=== PATIENT | female | born 1995 | race Caucasian/White ===

== ENCOUNTER 2017-04-26 09:46 | Observation (INO) | payer OTHER, MEDICAID ==
[2017-04-26] MEDS ORDERED: Terbutaline 1 MG/ML SDV SUBCUT PRN (09:55)
[2017-04-26] MEDS ORDERED: Sodium Chloride 0.9% 10 ML Syringe FLUSH PRN (09:55)
[2017-04-26] MEDS ORDERED: Sodium Chloride 0.9% 2.5 ML Syringe FLUSH PRN (09:55)
[2017-04-26] MEDS ORDERED: Misoprostol 200 MCG Tab PO PRN (09:55)
[2017-04-26] MEDS ORDERED: Butorphanol 1 MG/ML SDV IVPUSH PRN (09:55)
[2017-04-26] MEDS ORDERED: Nalbuphine 10 MG/1 ML Vial IVPUSH PRN (09:55)
[2017-04-26] MEDS ORDERED: Lidocaine 1% 50 ML MDV INJECT PRN (09:55)
[2017-04-26] MEDS ORDERED: Carboprost Tromethamine 250 MCG/1 ML Amp IM PRN (09:55)
[2017-04-26] MEDS ORDERED: Water For Irrigation,Sterile 1,000 ML Container IRR PRN (09:55)
[2017-04-26] MEDS ORDERED: Methylergonovine 0.2 MG/1 ML Amp IM PRN (09:55)
[2017-04-26] MEDS ORDERED: Misoprostol 25 MCG (1/4 of 100 MCG) Tab PO SCH (10:00)
[2017-04-26] MEDS ORDERED: Misoprostol 25 MCG (1/4 of 100 MCG) Tab VAG SCH (10:00)
[2017-04-26] MEDS ORDERED: Lactated Ringers 1,000 ML IV SCH (10:00)
[2017-04-26] MEDS ORDERED: Oxytocin/0.9 % Sodium Chloride 30 UNIT/500 ML BAG IV SCH (10:00)
[2017-04-26 10:57] LABS: CHLORIDE,CL 107 mmol/L (98-110); SODIUM,NA 138 mmol/L (136-146)
[2017-04-26] MEDS ORDERED: Misoprostol 25 MCG (1/4 of 100 MCG) Tab PO PRN (15:00)
[2017-04-26] MEDS ORDERED: Misoprostol 25 MCG (1/4 of 100 MCG) Tab VAG PRN (15:00)
== END 2017-04-26 12:15 | disposition home or self-care (01) ==
LOC: MW.OBCHECK 09:46 → MW.OB 09:59
PROVIDERS: ADMIT Obstetrics & Gynecology; ATTEND Advanced Practice Midwife
DX: O13.3 Gestational [pregnancy-induced] hypertension without significant proteinuria, third trimester (principal); Z3A.37 37 weeks gestation of pregnancy
CPT/HCPCS: 36415; 59025; 80053; 82570; 84156; 84550; 85027; 86850; 86900; 86901; G0378

== ENCOUNTER 2017-04-29 22:07 | Inpatient (IN) | payer OTHER, MEDICAID ==
[2017-04-29 23:41] LABS: CHLORIDE,CL 106 mmol/L (98-110); SODIUM,NA 137 mmol/L (136-146)
[2017-04-30] MEDS: Cephalexin 500 MG Cap PO SCH ×4 (00:07→19:36)
[2017-04-30] MEDS ORDERED: FLU Vacc QS 2017-18 (6mos UP)/PF 60 MCG/0.5 ML Syringe IM ONE (04:30)
[2017-04-30] MEDS ORDERED: Carboprost Tromethamine 250 MCG/1 ML Amp IM PRN (07:13)
[2017-04-30] MEDS ORDERED: Methylergonovine 0.2 MG/1 ML Amp IM PRN (07:13)
[2017-04-30] MEDS ORDERED: Lidocaine 1% 50 ML MDV INJECT PRN (07:13)
[2017-04-30] MEDS ORDERED: Sodium Chloride 0.9% 2.5 ML Syringe FLUSH PRN ×2 (07:13→07:24)
[2017-04-30] MEDS ORDERED: Nalbuphine 10 MG/1 ML Vial IVPUSH PRN (07:13)
[2017-04-30] MEDS ORDERED: Misoprostol 200 MCG Tab PO PRN (07:13)
[2017-04-30] MEDS ORDERED: Sodium Chloride 0.9% 10 ML Syringe FLUSH PRN ×2 (07:13→07:24)
[2017-04-30] MEDS ORDERED: Water For Irrigation,Sterile 1,000 ML Container IRR PRN (07:13)
[2017-04-30] MEDS ORDERED: Butorphanol 1 MG/ML SDV IVPUSH PRN (07:13)
[2017-04-30] MEDS ORDERED: Oxytocin/0.9 % Sodium Chloride 30 UNIT/500 ML BAG IV SCH ×2 (07:15→07:30)
[2017-04-30] MEDS ORDERED: Misoprostol 25 MCG (1/4 of 100 MCG) Tab VAG PRN (07:22)
[2017-04-30] MEDS ORDERED: Terbutaline 1 MG/ML SDV SUBCUT PRN (07:22)
[2017-04-30] MEDS ORDERED: Magnesium Sulfate/Water 4 GM in Premix Bag 1 BAG IV ONE (07:24)
[2017-04-30] MEDS ORDERED: Calcium Gluconate 10% 1 GM/10 ML SDV IV PRN (07:24)
[2017-04-30] MEDS ORDERED: Misoprostol 25 MCG (1/4 of 100 MCG) Tab VAG SCH (07:30)
[2017-04-30 08:07] LABS: CHLORIDE,CL 106 mmol/L (98-110); SODIUM,NA 136 mmol/L (136-146)
[2017-04-30] MEDS: Lactated Ringers 1,000 ML IV SCH ×2 (09:23→20:24)
[2017-04-30] MEDS: Magnesium Sulfate/Water 40 GM/1,000 ML BAG IV SCH (10:02)
--- NOTE | 2017-04-30 13:21 | HP ---
DATE OF : 1995 PRIMARY CARE PHYSICIAN: None PCP CHIEF COMPLAINT: Hypertension. HISTORY OF PRESENT ILLNESS: This is a 21-year-old female. She is G1, P0. She is currently at 37 and 6/7th weeks' gestation. She has been seen in the [facility] at [facility] over the past 5 days with a diagnosis of hypertension. She was started on a 24-hour urine yesterday and did bring that with her to the hospital. She was checking her blood pressures at home. The diastolics were consistently in the upper 90s, therefore, she presented to Labor and Delivery. She did have a headache several days ago. This has subsequently resolved. She has had some visual changes of what she calls snow flakes in her vision. She did have increased swelling in her hands and face as well as her lower extremities. She was placed on bedrest last week and her swelling have subsequently improved. Her blood pressures in clinic, baseline was 100/70, 120/70. On 04/26/2017, blood pressure was recorded as 140/108. She was observed on Labor and Delivery with serial blood pressures which did improve following complete bedrest. Laboratory studies including platelets and liver functions were normal, however, she did bring in her 24-hour urine collection which she started at 12 noon. This was completed and sent to the laboratory at 12 midnight for a 12-hour collection with a total protein of 207, making her 24-hour protein 414 consistent with proteinuria along with her hypertension gives her the diagnosis of mild preeclampsia. I discussed with her the options for plan of care. I recommended proceeding with induction of labor, as she is at term with mild preeclampsia. She agrees to this plan. Her cervix is favorable, however, with this being her first delivery, I did recommend proceeding with cervical ripening. She agrees to the use of Cytotec. I explained that it is an off-label use, but it has been well studied and there are safe protocols for its use. She agrees to beginning with vaginal Cytotec for induction of labor. I discussed the use of magnesium for seizure prophylaxis with side effects and complication, she also agrees to the magnesium. OB HISTORY: She is G1, P0. Her LMP was 07/05/2016. LABORATORY DATA AND IMAGING STUDIES: Laboratory studies include blood type O positive; antibody, negative. Pap normal. Positive history of varicella. She is rubella immune. VDRL, nonreactive. Hepatitis B, negative. HIV, negative. She is group B strep negative. She had a normal diabetes screen of 98. She did have an ultrasound performed yesterday which had been ordered by her molded goods spot picker. Estimated weight of 3265 g. Amniotic fluid index of 12.6, cephalic presentation. PAST MEDICAL HISTORY: Negative for chronic illness. PAST SURGICAL HISTORY: Right breast augmentation. FAMILY HISTORY: Significant for brother and father with type 1 diabetes. Heart disease in paternal grandmother. No history of congenital defects or other genetic disorders. SOCIAL HISTORY: Her partner is Canelo Kearney. She is sexually active. She denies use of tobacco, alcohol, or street drugs. ALLERGIES: None known. MEDICATIONS: vitamins. REVIEW OF SYSTEMS: NEUROLOGIC: Positive as reviewed previously including history of recent headaches, now resolved. Some visual changes, mild in nature. Otherwise, Cardiovascular, Pulmonary, Rheumatologic, and Dermatologic review of systems are negative. GENITOURINARY: She does report recent cramping with urination. She attributed this to her examination in the clinic. She has noted some blood in her urine as well. PHYSICAL EXAMINATION: VITAL SIGNS: Initial blood pressures are 139/94, pulse is 82, temperature 98.0, with rest blood pressure is 136/65, 123/76, and 148/93. heart tones are 130s, moderate variability. Accelerations present. No decelerations. Contractions are rare. GENERAL: She is alert and oriented. She does have some facial and hand edema. NECK: Supple without lymphadenopathy or thyromegaly. LUNGS: Clear bilaterally. CARDIOVASCULAR: Regular rate without murmur. ABDOMEN: Soft, gravid. There is no epigastric pain. The fundus is nontender. Appropriate size for gestational age. EXTREMITIES: 1+ edema bilaterally. Deep tendon reflexes are 1/4, equal bilaterally. VAGINAL: 2+, 80%, and 0 station. ASSESSMENT AND PLAN: 1. A 37 and 6/7th weeks' gestation with mild preeclampsia for induction of labor with magnesium seizure prophylaxis. 2. Urinary tract infection. We will proceed with culture and continue with Keflex that was started prior to the plan for admission. Dr. Nunez is objects conservator today and will assume care at 8:00 a.m. AMARA CASTREJON /[id number]
[2017-04-30] MEDS ORDERED: Acetaminophen 500 MG Tab PO PRN (22:03)
[2017-05-01] MEDS: Cephalexin 500 MG Cap PO SCH ×5 (00:26→23:51)
[2017-05-01] MEDS ORDERED: Ropivacaine HCl/PF 100 ML ONE (00:35)
[2017-05-01] MEDS ORDERED: fentaNYL 100 MCG/2 ML SDV ONE (00:36)
[2017-05-01] MEDS: Lactated Ringers 1,000 ML IV SCH ×2 (00:49→06:35)
--- NOTE | 2017-05-01 01:26 | PCM.PREANE ---
Preanesthetic Assessment - Procedure Proposed Procedure: labor epidural - Anesthesia/Transfusion/Family Hx Anesthesia History: No Prior Anesthesia Family History of Anesthesia Reaction: No Transfusion History: No Prior Transfusion(s) - Review of Systems General: No Symptoms Pulmonary: No Symptoms Cardiovascular: No Symptoms Gastrointestinal: No Symptoms Neurological: No Symptoms Other: Reports: None - Physical Assessment Height: 5 ft 4.8 in Weight: 186 lb 12.8 oz Mental Status: Alert & Oriented x3 Dentition: Reports: Normal Dentition ROM/Head Extension: Full Lungs: Clear to Auscultation, Normal Respiratory Effort Cardiovascular: Regular Rate, Regular Rhythm - Lab Values: Laboratory Last Values WBC 11.41 K/uL (4.0-11.0) H 04/30/17 07:33 RBC 4.10 M/uL (4.30-5.90) L 04/30/17 07:33 Hgb 11.6 g/dL (12.0-16.0) L 04/30/17 07:33 Hct 35.1 % (36.0-46.0) L 04/30/17 07:33 MCV 85.6 fL (80.0-98.0) 04/30/17 07:33 MCH 28.3 pg (27.0-32.0) 04/30/17 07:33 MCHC 33.0 g/dL (31.0-37.0) 04/30/17 07:33 RDW Std Deviation 40.1 fl (28.0-62.0) 04/30/17 07:33 RDW Coeff of Maegan 13 % (11.0-15.0) 04/30/17 07:33 Plt Count 210 K/uL (150-400) 04/30/17 07:33 MPV 10.50 fL (7.40-12.00) 04/30/17 07:33 Nucleated RBC % 0.0 /100WBC 04/30/17 07:33 Nucleated RBCs # 0 K/uL 04/30/17 07:33 Sodium 136 mmol/L (136-146) 04/30/17 07:33 Potassium 4.2 mmol/L (3.5-5.1) 04/30/17 07:33 Chloride 106 mmol/L (98-110) 04/30/17 07:33 Carbon Dioxide 23 mmol/L (21-31) 04/30/17 07:33 BUN 10 mg/dL (6.0-23.0) 04/30/17 07:33 Creatinine 0.7 mg/dL (0.6-1.5) 04/30/17 07:33 Est Cr Clr Drug Dosing 111.56 mL/min 04/30/17 07:33 Estimated GFR (MDRD) > 60.0 ml/min 04/30/17 07:33 Glucose 68 mg/dL (60-110) 04/30/17 07:33 Uric Acid 4.7 mg/dL (2.1-6.2) 04/29/17 22:57 Calcium 8.6 mg/dL (8.8-10.8) L 04/30/17 07:33 Magnesium 4.7 mEq/L (1.5-2.3) H 04/30/17 21:05 Total Bilirubin 0.2 mg/dL (0.1-1.5) 04/30/17 07:33 AST 21 IU/L (5-40) 04/30/17 07:33 ALT 20 IU/L (8-54) 04/30/17 07:33 Alkaline Phosphatase 143 (40-150) 04/30/17 07:33 Total Protein 6.0 g/dL (6.0-8.0) 04/30/17 07:33 Albumin 3.1 g/dL (3.5-5.0) L 04/30/17 07:33 Globulin 2.9 g/dL (2.0-3.5) 04/30/17 07:33 Albumin/Globulin Ratio 1.1 (1.3-2.8) L 04/30/17 07:33 Urine Color YELLOW 04/29/17 22:15 Urine Appearance SLT CLOUDY 04/29/17 22:15 Urine pH 8.0 (5.0-8.0) 04/29/17 22:15 Ur Specific [place] 1.010 (1.001-1.035) 04/29/17 22:15 Urine Protein NEGATIVE mg/dL (NEGATIVE) 04/29/17 22:15 Urine Glucose (UA) NEGATIVE mg/dL (NEGATIVE) 04/29/17 22:15 Urine Ketones NEGATIVE mg/dL (NEGATIVE) 04/29/17 22:15 Urine Occult Blood LARGE (NEGATIVE) H 04/29/17 22:15 Urine Nitrite NEGATIVE (NEGATIVE) 04/29/17 22:15 Urine Bilirubin NEGATIVE (NEGATIVE) 04/29/17 22:15 Urine Urobilinogen 0.2 EU/dL (<2.0) 04/29/17 22:15 Ur Leukocyte Esterase LARGE (NEGATIVE) 04/29/17 22:15 Urine RBC 3-5 (0-2/HPF) 04/29/17 22:15 Urine WBC 35-40 (0-5/HPF) 04/29/17 22:15 Ur Epithelial Cells MODERATE (NONE-FEW) 04/29/17 22:15 Urine Bacteria 1+ (NEGATIVE) H 04/29/17 22:15 Ur Collection Duration 12 04/29/17 23:57 Urine Total Volume 900 (800-1800) 04/29/17 23:57 Ur Total Protein Conc 23.0 mg/dL (0-14) H 04/29/17 23:57 Ur Total Protein 12 Hr 207.0 04/29/17 23:57 Blood Type O POSITIVE 04/30/17 07:33 Antibody Screen NEGATIVE 04/30/17 07:33 - Allergies Allergies/Adverse Reactions: Allergies Allergy/AdvReac Type Severity Reaction Status Date / Time No Known Allergies Allergy Verified 04/26/17 09:54 - Anesthesia Plan Free Text/Narrative:: labor epidural Pre-Op Medication Ordered: None - Acknowledgements Anesthesia Type Planned: Epidural Pt an Appropriate Candidate for the Planned Anesthesia: Yes Alternatives and Risks of Anesthesia Discussed w Pt/Guardian: Yes Pt/Guardian Understands and Agrees with Anesthesia Plan: Yes PreAnesthesia Questionnaire SAUSAGE WRAPPER History: Reports: - Past Surgical History HEENT Surgical History: Reports: Tonsillectomy Dermatological Surgical History: Reports: Plastic Surgical Reconstruction/Repair - SUBSTANCE USE Smoking Status *Q: Never Smoker Second Hand Smoke Exposure: No Recreational Drug Use History: No - CURRENT (IN HOUSE) MEDS Current Meds: Current Medications Acetaminophen (Tylenol Extra Strength) 1,000 mg PO Q6H PRN PRN Reason: Headache/Pain Last Admin: 04/30/17 22:12 Dose: 1,000 mg Butorphanol Tartrate (Stadol) 1 mg IVPUSH Q1H PRN PRN Reason: Pain Calcium Gluconate (Calcium Gluconate) 1 gm IV ASDIRECTED PRN PRN Reason: respiratory distress Carboprost Tromethamine (Hemabate Ds) 250 mcg IM ASDIRECTED PRN PRN Reason: Post Hemorrhage Cephalexin (Keflex) 500 mg PO Q6HR KARTIK Last Admin: 05/01/17 00:26 Dose: 500 mg Lactated Ringer's (Ringers, Lactated) 1,000 mls @ 50 mls/hr IV ASDIRECTED KARTIK Last Admin: 05/01/17 00:49 Dose: 999 mls/hr Oxytocin/Sodium Chloride (Oxytocin 30 Unit/500 Ml-Ns) 30 unit in 500 mls @ 999 mls/hr IV TITRATE KARTIK Oxytocin/Sodium Chloride (Oxytocin 30 Unit/500 Ml-Ns) 30 unit in 500 mls @ 2 mls/hr IV TITRATE KARTIK; 2 MUNITS/MIN PRN Reason: Protocol Last Titration: 04/30/17 21:55 Dose: 4 munits/min, 4 mls/hr Magnesium Sulfate (Magnesium Sulfate 40 Gm In Water 1000 Ml) 40 gm in 1,000 mls @ 50 mls/hr IV ASDIRECTED KARTIK; 2 GM/HR PRN Reason: Protocol Last Admin: 04/30/17 10:02 Dose: 2 gm/hr, 50 mls/hr Lidocaine HCl (Xylocaine 1%) 50 ml INJECT .ONCE PRN PRN Reason: Laceration repair Methylergonovine Maleate (Methergine) 0.2 mg IM ASDIRECTED PRN PRN Reason: Post Hemorrhage Misoprostol (Cytotec) 200 mcg PO .ONCE PRN PRN Reason: Post Hemorrhage Misoprostol (Cytotec) 25 mcg VAG .ONCE KARTIK Last Admin: 04/30/17 10:26 Dose: 25 mcg Misoprostol (Cytotec) 25 mcg VAG Q6H PRN PRN Reason: Cervical Ripening Last Admin: 04/30/17 16:25 Dose: 25 mcg Nalbuphine HCl (Nubain) 10 mg IVPUSH Q1H PRN PRN Reason: Pain (severe 7-10) Sodium Chloride (Saline Flush) 10 ml FLUSH ASDIRECTED PRN PRN Reason: Keep Vein Open Sodium Chloride (Saline Flush) 2.5 ml FLUSH ASDIRECTED PRN PRN Reason: Keep Vein Open Sodium Chloride (Saline Flush) 10 ml FLUSH ASDIRECTED PRN PRN Reason: Keep Vein Open Sodium Chloride (Saline Flush) 2.5 ml FLUSH ASDIRECTED PRN PRN Reason: Keep Vein Open Sterile Water (Sterile Water For Irrigation) 1,000 ml IRR ASDIRECTED PRN PRN Reason: delivery Terbutaline Sulfate (Brethine) 0.25 mg SUBCUT ASDIRECTED PRN PRN Reason: Tacysystole Discontinued Medications Fentanyl (Sublimaze) Confirm Administered Dose 200 mcg .ROUTE .STK-MED ONE Stop: 05/01/17 00:37 Magnesium Sulfate 4 gm/ Premix 100 mls @ 300 mls/hr IV .BOLUS ONE Stop: 04/30/17 07:43 Last Admin: 04/30/17 09:42 Dose: 300 mls/hr Ropivacaine (Naropin 0.2%) Confirm Administered Dose 100 mls @ as directed .ROUTE .STK-MED ONE Stop: 05/01/17 00:36 Influenza Virus Vaccine (Pharmacy To Dose - Influenza Vaccine) 1 each IM ONETIME ONE Stop: 04/30/17 04:14 Influenza Virus Vaccine (Flulaval Quad [id number]) 60 mcg IM .ONCE ONE Stop: 04/30/17 04:31
[2017-05-01] MEDS ORDERED: Ondansetron 4 MG/2 ML SDV IVPUSH STA (04:46)
[2017-05-01] MEDS ORDERED: Witch Hazel Medicated Pads 40/Jar TOP PRN (04:59)
[2017-05-01] MEDS ORDERED: oxyCODONE 5 MG Tab PO PRN (04:59)
[2017-05-01] MEDS ORDERED: Docusate Sodium 100 MG Cap PO PRN (04:59)
[2017-05-01] MEDS ORDERED: Bisacodyl 10 MG Supp RECTAL PRN (04:59)
[2017-05-01] MEDS ORDERED: Ibuprofen 400 MG Tab PO PRN (04:59)
[2017-05-01] MEDS ORDERED: Benzocaine/Menthol 20%-0.5% Spray 78 GM Cannister TOP PRN (04:59)
[2017-05-01] MEDS ORDERED: Lanolin 100% Cream 7 GM Tube TOP PRN (04:59)
[2017-05-01] MEDS ORDERED: Ondansetron 4 MG/2 ML SDV IVPUSH PRN (04:59)
[2017-05-01] MEDS ORDERED: Acetaminophen 500 MG Tab PO PRN ×2 (04:59)
[2017-05-01] MEDS: Magnesium Sulfate/Water 40 GM/1,000 ML BAG IV SCH (05:49)
--- NOTE | 2017-05-01 06:07 | OR ---
SURGEON: Arlette Nunez M.D. DATE OF PROCEDURE: 05/01/2017 PREOPERATIVE DIAGNOSES: 1. Thirty-eight weeks intrauterine . 2. Preeclampsia. POSTOPERATIVE DIAGNOSIS: 1. Thirty-eight weeks intrauterine . 2. Preeclampsia. PROCEDURE: Spontaneous vaginal delivery, second-degree midline laceration repair. CHEESE SPRAYER: Osvaldo Drake MS-4. ESTIMATED BLOOD LOSS: 40 mL. ANESTHESIA: Epidural. COMPLICATIONS: None. FINDINGS: Term male with score 9 at 1 minute and 10 at 5 minutes. Weight is pending. Spontaneous delivery, intact placenta, three-vessel cord. Nuchal cord x1 noted, reduced manually. DISPOSITION: Mom in magnesium recovery, infant to nursery. PROCEDURE DETAILS: Rommel is a 21-year-old, primigravida, approximately 38 weeks gestational age, who presents for evaluation of labor and delivery with headache and swelling. On evaluation, she was found to have abnormally elevated blood pressures with an abnormally elevated to 12-hour urine for protein. Therefore, she was diagnosed with preeclampsia and was admitted. PIH labs were drawn. Given term gestation, it was felt to be best to proceed with induction of labor. Therefore, magnesium prophylaxis was initiated as well as followed by Cytotec, responded nicely to this. After two doses of Cytotec, was found to be approximately 4 cm dilated, 80% effaced, -1 station. Therefore, went on to Pitocin augmentation. She had spontaneous rupture of membranes. Clear fluid was returned. She is group B beta strep negative. heart tones remained in the 130s to 140s with variability, category 1. The patient continued to progress nicely throughout the evening and plasterer maintenance hours. Shortly before 3 a.m., she was found to be complete, 100% effaced, +2 station. Began pushing efforts, pushed adequately to a +3 station. She was placed in modified dorsal lithotomy position, was prepped and draped in the usual aseptic manner. Continued with pushing efforts and was able to deliver infant's head atraumatically, spontaneously, followed by anterior shoulder, posterior shoulder, and remainder of the body without difficulty. Nuchal cord x1, reduced manually. The 's oropharynx and nares bulb suctioned. Cord was clamped x2 and cut. Infant was handed off to her mother with attending nursing staff at her side. Cord arterial, cord venous, cord blood sampling obtained. Light suprapubic pressure was applied while the placenta was delivered spontaneously intact. Vigorous fundal uterine massage was then applied while 30 units of Pitocin was delivered in 500 mL IV fluid. Upon inspection of cervix, vaginal sidewalls, and perineum, there was found to be a second-degree midline laceration. This was repaired in the usual fashion using a 3-0 Vicryl. Hemostasis appeared evident. The patient tolerated the repair well. The uterus remained firm. The patient remained on magnesium recovery. We will monitor her blood pressures closely. Continue magnesium prophylaxis. ANGEL / CASH /[id number]
[2017-05-01] MEDS: Ibuprofen 800 MG Tab PO PRN ×2 (09:19→17:40)
[2017-05-01 15:49] LABS: CHLORIDE,CL 104 mmol/L (98-110); SODIUM,NA 134 mmol/L (136-146)
--- NOTE | 2017-05-01 18:57 | PCM.PNPP ---
- General Info Functional Status: Reports: Pain Controlled, Tolerating Diet, Urinating - Review of Systems General: Reports: Fatigue. Denies: Fever, Malaise HEENT: Denies: Headaches Pulmonary: Denies: Shortness of Breath, Pleuritic Chest Pain Cardiovascular: Denies: Chest Pain, Palpitations, Dyspnea on Exertion Gastrointestinal: Denies: Abdominal Pain Genitourinary: Denies: Dysuria, Frequency Neurological: Denies: Confusion, Dizziness, Headache, Paresthesia - General Info Date of Service: 05/01/17 - Patient Data Vital Signs - Most Recent: Last Vital Signs Temp 36.9 C 05/01/17 15:00 Pulse 89 05/01/17 15:00 Resp 16 05/01/17 15:00 BP 129/75 05/01/17 15:00 Pulse Ox 97 05/01/17 15:00 Weight - Most Recent: 186 lb 12.8 oz I&O - Last 24 Hours: Intake & Output 05/01/17 05/01/17 05/01/17 06:59 14:59 22:59 Intake Total 90 Output Total 1000 Balance -1000 90 Lab Results - Last 24 Hours: Laboratory Results - last 24 hr 04/30/17 05/01/17 05/01/17 Range/Units 21:05 02:54 08:55 WBC (4.0-11.0) K/uL RBC (4.30-5.90) M/uL Hgb (12.0-16.0) g/dL Hct (36.0-46.0) % MCV (80.0-98.0) fL MCH (27.0-32.0) pg MCHC (31.0-37.0) g/dL RDW Std Deviation (28.0-62.0) fl RDW Coeff of Maegan (11.0-15.0) % Plt Count (150-400) K/uL MPV (7.40-12.00) fL Neut % (Auto) (48.0-80.0) % Lymph % (Auto) (16.0-40.0) % Walton % (Auto) (0.0-15.0) % Eos % (Auto) (0.0-7.0) % Baso % (Auto) (0.0-1.5) % Neut # (Auto) (1.4-5.7) K/uL Lymph # (Auto) (0.6-2.4) K/uL Walton # (Auto) (0.0-0.8) K/uL Eos # (Auto) (0.0-0.7) K/uL Baso # (Auto) (0.0-0.1) K/uL Nucleated RBC % /100WBC Nucleated RBCs # K/uL Sodium (136-146) mmol/L Potassium (3.5-5.1) mmol/L Chloride (98-110) mmol/L Carbon Dioxide (21-31) mmol/L BUN (6.0-23.0) mg/dL Creatinine (0.6-1.5) mg/dL Est Cr Clr Drug Dosing mL/min Estimated GFR (MDRD) ml/min Glucose (60-110) mg/dL Calcium (8.8-10.8) mg/dL Magnesium 4.7 H 5.0 H 4.4 H (1.5-2.3) mEq/L Total Bilirubin (0.1-1.5) mg/dL AST (5-40) IU/L ALT (8-54) IU/L Alkaline Phosphatase (40-150) Total Protein (6.0-8.0) g/dL Albumin (3.5-5.0) g/dL Globulin (2.0-3.5) g/dL Albumin/Globulin Ratio (1.3-2.8) 05/01/17 05/01/17 Range/Units 15:10 15:10 WBC 12.98 H (4.0-11.0) K/uL RBC 3.55 L (4.30-5.90) M/uL Hgb 10.2 L (12.0-16.0) g/dL Hct 30.6 L (36.0-46.0) % MCV 86.2 (80.0-98.0) fL MCH 28.7 (27.0-32.0) pg MCHC 33.3 (31.0-37.0) g/dL RDW Std Deviation 42.5 (28.0-62.0) fl RDW Coeff of Maegan 14 (11.0-15.0) % Plt Count 194 (150-400) K/uL MPV 10.50 (7.40-12.00) fL Neut % (Auto) 75.5 (48.0-80.0) % Lymph % (Auto) 17.3 (16.0-40.0) % Walton % (Auto) 6.1 (0.0-15.0) % Eos % (Auto) 0.8 (0.0-7.0) % Baso % (Auto) 0.3 (0.0-1.5) % Neut # (Auto) 9.8 H (1.4-5.7) K/uL Lymph # (Auto) 2.2 (0.6-2.4) K/uL Walton # (Auto) 0.8 (0.0-0.8) K/uL Eos # (Auto) 0.1 (0.0-0.7) K/uL Baso # (Auto) 0.0 (0.0-0.1) K/uL Nucleated RBC % 0.0 /100WBC Nucleated RBCs # 0 K/uL Sodium 134 L (136-146) mmol/L Potassium 4.5 (3.5-5.1) mmol/L Chloride 104 (98-110) mmol/L Carbon Dioxide 23 (21-31) mmol/L BUN 11 (6.0-23.0) mg/dL Creatinine 0.8 (0.6-1.5) mg/dL Est Cr Clr Drug Dosing 97.62 mL/min Estimated GFR (MDRD) > 60.0 ml/min Glucose 121 H (60-110) mg/dL Calcium 6.9 L (8.8-10.8) mg/dL Magnesium > 4.6 H (1.5-2.3) mEq/L Total Bilirubin 0.2 (0.1-1.5) mg/dL AST 26 (5-40) IU/L ALT 16 (8-54) IU/L Alkaline Phosphatase 130 (40-150) Total Protein 5.5 L (6.0-8.0) g/dL Albumin 2.7 L (3.5-5.0) g/dL Globulin 2.8 (2.0-3.5) g/dL Albumin/Globulin Ratio 1.0 L (1.3-2.8) Micro Results - Last 24 Hours: Microbiology 04/29/17 22:15 Urine Culture - Final Urine, Clean Catch MIXED KERON 10,000-100,000 CFU/ML Med Orders - Current: Current Medications Acetaminophen (Tylenol Extra Strength) 1,000 mg PO Q6H PRN PRN Reason: Headache/Pain Last Admin: 04/30/17 22:12 Dose: 1,000 mg Acetaminophen (Tylenol Extra Strength) 500 mg PO Q4H PRN PRN Reason: Pain Acetaminophen (Tylenol Extra Strength) 1,000 mg PO Q4H PRN PRN Reason: Pain Benzocaine/Menthol (Dermoplast Pain Relief 20%-0.5% [place]) 78 gm TOP ASDIRECTED PRN PRN Reason: Perineal Comfort Measure Last Admin: 05/01/17 05:41 Dose: 1 canister Bisacodyl (Dulcolax) 10 mg RECTAL .ONCE PRN PRN Reason: Constipation Calcium Gluconate (Calcium Gluconate) 1 gm IV ASDIRECTED PRN PRN Reason: respiratory distress Carboprost Tromethamine (Hemabate Ds) 250 mcg IM ASDIRECTED PRN PRN Reason: Post Hemorrhage Cephalexin (Keflex) 500 mg PO Q6HR KARTIK Last Admin: 05/01/17 18:07 Dose: 500 mg Docusate Sodium (Colace) 100 mg PO BID PRN PRN Reason: Constipation Emollient Ointment (Lansinoh Hpa) 0 gm TOP ASDIRECTED PRN PRN Reason: Sore Nipples Last Admin: 05/01/17 05:42 Dose: 1 applicful Lactated Ringer's (Ringers, Lactated) 1,000 mls @ 50 mls/hr IV ASDIRECTED KARTIK Last Admin: 05/01/17 06:35 Dose: 999 mls/hr Oxytocin/Sodium Chloride (Oxytocin 30 Unit/500 Ml-Ns) 30 unit in 500 mls @ 999 mls/hr IV TITRATE KARTIK Oxytocin/Sodium Chloride (Oxytocin 30 Unit/500 Ml-Ns) 30 unit in 500 mls @ 2 mls/hr IV TITRATE KARTIK; 2 MUNITS/MIN PRN Reason: Protocol Last Titration: 05/01/17 04:17 Dose: 999 munits/min, 999 mls/hr Magnesium Sulfate (Magnesium Sulfate 40 Gm In Water 1000 Ml) 40 gm in 1,000 mls @ 50 mls/hr IV ASDIRECTED KARTIK; 2 GM/HR PRN Reason: Protocol Last Admin: 05/01/17 05:49 Dose: 2 gm/hr, 50 mls/hr Ibuprofen (Motrin) 400 mg PO Q4H PRN PRN Reason: Pain Ibuprofen (Motrin) 800 mg PO Q6H PRN PRN Reason: Pain Last Admin: 05/01/17 17:40 Dose: 800 mg Methylergonovine Maleate (Methergine) 0.2 mg IM ASDIRECTED PRN PRN Reason: Post Hemorrhage Nalbuphine HCl (Nubain) 10 mg IVPUSH Q1H PRN PRN Reason: Pain (severe 7-10) Ondansetron HCl (Zofran) 4 mg IVPUSH Q6H PRN PRN Reason: Nausea/Vomiting Oxycodone HCl (Oxycodone) 5 mg PO Q2H PRN PRN Reason: Pain Sodium Chloride (Saline Flush) 2.5 ml FLUSH ASDIRECTED PRN PRN Reason: Keep Vein Open Sodium Chloride (Saline Flush) 10 ml FLUSH ASDIRECTED PRN PRN Reason: Keep Vein Open Witch Valeria (Tucks) 1 pad TOP ASDIRECTED PRN PRN Reason: comfort care Last Admin: 05/01/17 05:42 Dose: 1 applic Discontinued Medications Butorphanol Tartrate (Stadol) 1 mg IVPUSH Q1H PRN PRN Reason: Pain Fentanyl (Sublimaze) Confirm Administered Dose 200 mcg .ROUTE .STK-MED ONE Stop: 05/01/17 00:37 Magnesium Sulfate 4 gm/ Premix 100 mls @ 300 mls/hr IV .BOLUS ONE Stop: 04/30/17 07:43 Last Admin: 04/30/17 09:42 Dose: 300 mls/hr Ropivacaine (Naropin 0.2%) Confirm Administered Dose 100 mls @ as directed .ROUTE .STK-MED ONE Stop: 05/01/17 00:36 Influenza Virus Vaccine (Pharmacy To Dose - Influenza Vaccine) 1 each IM ONETIME ONE Stop: 04/30/17 04:14 Influenza Virus Vaccine (Flulaval Quad [id number]) 60 mcg IM .ONCE ONE Stop: 04/30/17 04:31 Lidocaine HCl (Xylocaine 1%) 50 ml INJECT .ONCE PRN PRN Reason: Laceration repair Misoprostol (Cytotec) 200 mcg PO .ONCE PRN PRN Reason: Post Hemorrhage Misoprostol (Cytotec) 25 mcg VAG .ONCE KARTIK Last Admin: 04/30/17 10:26 Dose: 25 mcg Misoprostol (Cytotec) 25 mcg VAG Q6H PRN PRN Reason: Cervical Ripening Last Admin: 04/30/17 16:25 Dose: 25 mcg Ondansetron HCl (Zofran) 4 mg IVPUSH ONETIME STA Stop: 05/01/17 04:47 Last Admin: 05/01/17 05:00 Dose: 4 mg Sodium Chloride (Saline Flush) 10 ml FLUSH ASDIRECTED PRN PRN Reason: Keep Vein Open Sodium Chloride (Saline Flush) 2.5 ml FLUSH ASDIRECTED PRN PRN Reason: Keep Vein Open Sterile Water (Sterile Water For Irrigation) 1,000 ml IRR ASDIRECTED PRN PRN Reason: delivery Terbutaline Sulfate (Brethine) 0.25 mg SUBCUT ASDIRECTED PRN PRN Reason: Tacysystole - Infant Interaction Infant Disposition, : in Room with Family Feeding: Breastfed Infant; Nursed Well Support Person: Significant Other - Recovery Exam Fundal Tone: Firm Fundal Level: 1 Fingerbreadths Below Umbilicus Fundal Placement: Midline Lochia Amount: Scant Lochia Color: Rubra/Red Perineum Description: Edematous Episiotomy/Laceration: Approximated Bladder Status: Voiding Urinary Elimination: Voided - Exam General: Alert, Oriented HEENT: Pupils Equal Lungs: Clear to Auscultation, Normal Respiratory Effort Cardiovascular: Regular Rate, Regular Rhythm GI/Abdominal Exam: Soft Extremities: Non-Tender, Pedal Edema Neurological: No New Focal Deficit, Reflexes Equal Bilateral (2+. No clonus) Psy/Mental Status: Alert, Normal Affect, Normal Mood - Problem List & Annotations (1) Pre-eclampsia, delivered SNOMED Code(s): 125915798 Code(s): O14.94 - UNSPECIFIED PRE-ECLAMPSIA, COMPLICATING CHILDBIRTH Status : Acute Current Visit: Yes (2) Vaginal delivery SNOMED Code(s): 593996121 Code(s): O80 - ENCOUNTER FOR FULL-TERM UNCOMPLICATED DELIVERY Status: Acute Current Visit: Yes - Problem List Review Problem List Initiated/Reviewed/Updated: Yes - Assessment Assessment:: PPD #0, s/p at 37weeks, IOL for mild preecalmpsia, currently on Magnesium sulphate Asymptomatic. Normotensive with normal HELLP labs Adequate Urine output - Plan Plan:: May stop Magnesium sulphate. Continue current management. Will continue close observation overnight and anticipate discharge in tomorrow if remains clinically stable
[2017-05-02] MEDS: Cephalexin 500 MG Cap PO SCH ×4 (00:06→19:23)
[2017-05-02] MEDS: Ibuprofen 800 MG Tab PO PRN ×2 (02:45→20:26)
--- NOTE | 2017-05-02 07:51 | PCM48HPAN ---
Post Anesthesia Note - EVALUATION WITHIN 48HRS OF ANESTHETIC Vital Signs in Normal Range: Yes Patient Participated in Evaluation: Yes Respiratory Function Stable: Yes Airway Patent: Yes Cardiovascular Function Stable: Yes Hydration Status Stable: Yes Pain Control Satisfactory: Yes Nausea and Vomiting Control Satisfactory: Yes Mental Status Recovered: Yes
--- NOTE | 2017-05-02 08:12 | PCM.PNPP ---
<Osvaldo Drake - Last Filed: 05/02/17 08:36> - General Info Date of Service: 05/02/17 Functional Status: Reports: Pain Controlled, Tolerating Diet, Ambulating, Urinating - Review of Systems General: Denies: Fever, Weakness, Fatigue HEENT: Denies: Headaches, Visual Changes Pulmonary: Denies: Shortness of Breath, Pleuritic Chest Pain, Cough Cardiovascular: Denies: Chest Pain, Palpitations Gastrointestinal: Reports: Flatus. Denies: Diarrhea, Nausea, Vomiting Genitourinary: Denies: Dysuria, Frequency Musculoskeletal: Reports: Hand Pain (carpal tunnel) Skin: Denies: Cyanosis, Jaundice, Mottled Neurological: Denies: Confusion, Dizziness, Headache Psychiatric: Denies: Confusion, Depression - General Info Date of Service: 05/02/17 - Patient Data Vital Signs - Most Recent: Last Vital Signs Temp 98.0 F 05/01/17 21:00 Pulse 78 05/01/17 21:00 Resp 16 05/01/17 21:00 BP 130/76 05/01/17 21:00 Pulse Ox 96 05/01/17 21:00 Weight - Most Recent: 84.731 kg I&O - Last 24 Hours: Intake & Output 05/01/17 05/02/17 05/02/17 22:59 06:59 14:59 Intake Total 1350 Output Total 1600 Balance -250 Lab Results - Last 24 Hours: Laboratory Results - last 24 hr 05/01/17 05/01/17 05/01/17 Range/Units 08:55 15:10 15:10 WBC 12.98 H (4.0-11.0) K/uL RBC 3.55 L (4.30-5.90) M/uL Hgb 10.2 L (12.0-16.0) g/dL Hct 30.6 L (36.0-46.0) % MCV 86.2 (80.0-98.0) fL MCH 28.7 (27.0-32.0) pg MCHC 33.3 (31.0-37.0) g/dL RDW Std Deviation 42.5 (28.0-62.0) fl RDW Coeff of Maegan 14 (11.0-15.0) % Plt Count 194 (150-400) K/uL MPV 10.50 (7.40-12.00) fL Neut % (Auto) 75.5 (48.0-80.0) % Lymph % (Auto) 17.3 (16.0-40.0) % Wright % (Auto) 6.1 (0.0-15.0) % Eos % (Auto) 0.8 (0.0-7.0) % Baso % (Auto) 0.3 (0.0-1.5) % Neut # (Auto) 9.8 H (1.4-5.7) K/uL Lymph # (Auto) 2.2 (0.6-2.4) K/uL Wright # (Auto) 0.8 (0.0-0.8) K/uL Eos # (Auto) 0.1 (0.0-0.7) K/uL Baso # (Auto) 0.0 (0.0-0.1) K/uL Nucleated RBC % 0.0 /100WBC Nucleated RBCs # 0 K/uL Sodium 134 L (136-146) mmol/L Potassium 4.5 (3.5-5.1) mmol/L Chloride 104 (98-110) mmol/L Carbon Dioxide 23 (21-31) mmol/L BUN 11 (6.0-23.0) mg/dL Creatinine 0.8 (0.6-1.5) mg/dL Est Cr Clr Drug Dosing 97.62 mL/min Estimated GFR (MDRD) > 60.0 ml/min Glucose 121 H (60-110) mg/dL Calcium 6.9 L (8.8-10.8) mg/dL Magnesium 4.4 H > 4.6 H (1.5-2.3) mEq/L Total Bilirubin 0.2 (0.1-1.5) mg/dL AST 26 (5-40) IU/L ALT 16 (8-54) IU/L Alkaline Phosphatase 130 (40-150) Total Protein 5.5 L (6.0-8.0) g/dL Albumin 2.7 L (3.5-5.0) g/dL Globulin 2.8 (2.0-3.5) g/dL Albumin/Globulin Ratio 1.0 L (1.3-2.8) Micro Results - Last 24 Hours: Microbiology 04/29/17 22:15 Urine Culture - Final Urine, Clean Catch MIXED KERON 10,000-100,000 CFU/ML Med Orders - Current: Current Medications Acetaminophen (Tylenol Extra Strength) 1,000 mg PO Q6H PRN PRN Reason: Headache/Pain Last Admin: 04/30/17 22:12 Dose: 1,000 mg Acetaminophen (Tylenol Extra Strength) 500 mg PO Q4H PRN PRN Reason: Pain Acetaminophen (Tylenol Extra Strength) 1,000 mg PO Q4H PRN PRN Reason: Pain Benzocaine/Menthol (Dermoplast Pain Relief 20%-0.5% [place]) 78 gm TOP ASDIRECTED PRN PRN Reason: Perineal Comfort Measure Last Admin: 05/01/17 05:41 Dose: 1 canister Bisacodyl (Dulcolax) 10 mg RECTAL .ONCE PRN PRN Reason: Constipation Calcium Gluconate (Calcium Gluconate) 1 gm IV ASDIRECTED PRN PRN Reason: respiratory distress Carboprost Tromethamine (Hemabate Ds) 250 mcg IM ASDIRECTED PRN PRN Reason: Post Hemorrhage Cephalexin (Keflex) 500 mg PO Q6HR KARTIK Last Admin: 05/02/17 05:56 Dose: 500 mg Docusate Sodium (Colace) 100 mg PO BID PRN PRN Reason: Constipation Emollient Ointment (Lansinoh Hpa) 0 gm TOP ASDIRECTED PRN PRN Reason: Sore Nipples Last Admin: 05/01/17 05:42 Dose: 1 applicful Lactated Ringer's (Ringers, Lactated) 1,000 mls @ 50 mls/hr IV ASDIRECTED KARTIK Last Admin: 05/01/17 06:35 Dose: 999 mls/hr Oxytocin/Sodium Chloride (Oxytocin 30 Unit/500 Ml-Ns) 30 unit in 500 mls @ 999 mls/hr IV TITRATE KARTIK Oxytocin/Sodium Chloride (Oxytocin 30 Unit/500 Ml-Ns) 30 unit in 500 mls @ 2 mls/hr IV TITRATE KARTIK; 2 MUNITS/MIN PRN Reason: Protocol Last Titration: 05/01/17 04:17 Dose: 999 munits/min, 999 mls/hr Magnesium Sulfate (Magnesium Sulfate 40 Gm In Water 1000 Ml) 40 gm in 1,000 mls @ 50 mls/hr IV ASDIRECTED KARTIK; 2 GM/HR PRN Reason: Protocol Last Admin: 05/01/17 05:49 Dose: 2 gm/hr, 50 mls/hr Ibuprofen (Motrin) 400 mg PO Q4H PRN PRN Reason: Pain Ibuprofen (Motrin) 800 mg PO Q6H PRN PRN Reason: Pain Last Admin: 05/02/17 02:45 Dose: 800 mg Methylergonovine Maleate (Methergine) 0.2 mg IM ASDIRECTED PRN PRN Reason: Post Hemorrhage Nalbuphine HCl (Nubain) 10 mg IVPUSH Q1H PRN PRN Reason: Pain (severe 7-10) Ondansetron HCl (Zofran) 4 mg IVPUSH Q6H PRN PRN Reason: Nausea/Vomiting Oxycodone HCl (Oxycodone) 5 mg PO Q2H PRN PRN Reason: Pain Sodium Chloride (Saline Flush) 2.5 ml FLUSH ASDIRECTED PRN PRN Reason: Keep Vein Open Sodium Chloride (Saline Flush) 10 ml FLUSH ASDIRECTED PRN PRN Reason: Keep Vein Open Witch Valeria (Tucks) 1 pad TOP ASDIRECTED PRN PRN Reason: comfort care Last Admin: 05/01/17 05:42 Dose: 1 applic Discontinued Medications Butorphanol Tartrate (Stadol) 1 mg IVPUSH Q1H PRN PRN Reason: Pain Fentanyl (Sublimaze) Confirm Administered Dose 200 mcg .ROUTE .STK-MED ONE Stop: 05/01/17 00:37 Last Admin: 05/01/17 23:51 Dose: Not Given Magnesium Sulfate 4 gm/ Premix 100 mls @ 300 mls/hr IV .BOLUS ONE Stop: 04/30/17 07:43 Last Admin: 04/30/17 09:42 Dose: 300 mls/hr Ropivacaine (Naropin 0.2%) Confirm Administered Dose 100 mls @ as directed .ROUTE .STK-MED ONE Stop: 05/01/17 00:36 Last Admin: 05/01/17 23:51 Dose: Not Given Influenza Virus Vaccine (Pharmacy To Dose - Influenza Vaccine) 1 each IM ONETIME ONE Stop: 04/30/17 04:14 Influenza Virus Vaccine (Flulaval Quad [id number]) 60 mcg IM .ONCE ONE Stop: 04/30/17 04:31 Lidocaine HCl (Xylocaine 1%) 50 ml INJECT .ONCE PRN PRN Reason: Laceration repair Misoprostol (Cytotec) 200 mcg PO .ONCE PRN PRN Reason: Post Hemorrhage Misoprostol (Cytotec) 25 mcg VAG .ONCE KARTIK Last Admin: 04/30/17 10:26 Dose: 25 mcg Misoprostol (Cytotec) 25 mcg VAG Q6H PRN PRN Reason: Cervical Ripening Last Admin: 04/30/17 16:25 Dose: 25 mcg Ondansetron HCl (Zofran) 4 mg IVPUSH ONETIME STA Stop: 05/01/17 04:47 Last Admin: 05/01/17 05:00 Dose: 4 mg Sodium Chloride (Saline Flush) 10 ml FLUSH ASDIRECTED PRN PRN Reason: Keep Vein Open Sodium Chloride (Saline Flush) 2.5 ml FLUSH ASDIRECTED PRN PRN Reason: Keep Vein Open Sterile Water (Sterile Water For Irrigation) 1,000 ml IRR ASDIRECTED PRN PRN Reason: delivery Terbutaline Sulfate (Brethine) 0.25 mg SUBCUT ASDIRECTED PRN PRN Reason: Tacysystole - Interaction Infant Disposition, : in Room with Family Feeding: Breastfed Infant; Nursed Well Support Person: Significant Other - Recovery Exam Fundal Tone: Firm Fundal Level: 1 Fingerbreadths Below Umbilicus Fundal Placement: Midline Lochia Amount: Scant Lochia Color: Rubra/Red Perineum Description: Edematous Other Perinuem Description: 2nd degree tear,repaired Episiotomy/Laceration: Approximated Bladder Status: Voiding Urinary Elimination: Voided - Exam General: Alert, Oriented HEENT: Pupils Reactive, Mucous Membr. Moist/[place] Neck: Trachea Midline Lungs: Clear to Auscultation, Normal Respiratory Effort Cardiovascular: Regular Rate, Regular Rhythm GI/Abdominal Exam: Normal Bowel Sounds, Soft Extremities: Normal Inspection, Non-Tender, No Pedal Edema Skin: Warm, Dry, Intact Neurological: No New Focal Deficit Psy/Mental Status: Alert, Normal Affect, Normal Mood - Problem List & Annotations (1) Pre-eclampsia, delivered SNOMED Code(s): 500438295 Code(s): O14.94 - UNSPECIFIED PRE-ECLAMPSIA, COMPLICATING CHILDBIRTH Status : Acute Current Visit: Yes (2) Vaginal delivery SNOMED Code(s): 162353255 Code(s): O80 - ENCOUNTER FOR FULL-TERM UNCOMPLICATED DELIVERY Status: Acute Current Visit: Yes - Problem List Review Problem List Initiated/Reviewed/Updated: Yes - Assessment Assessment:: PPD #1 - at 37weeks with mild preecalmpsia. Minimal pain and lochia. Patient has been normotensive and no signs/symptoms of preeclampsia. - Plan Plan:: Stopped magnesium sulphate. Plan to discharge today if no complication arise and if baby is ready to be discharged. Discharge instruction reviewed. Nothing in the vagina for 6 weeks and counseled that they can become even while and not having a period. Continue while . Can use OTC ibuprofen/Tylenol as needed for pain. Instructed patient to call if she develops fever greater than 101 or bleeding through a large pad in an hour. Also instructed her to call if any signs of preeclampsia develop; headache, vision changes, or severe abdominal pain. Educated on common emotional changes and when to let us know if symptoms seem to worsen. [facility] <Arlette Nunez R - Last Filed: 05/02/17 08:54> - Patient Data Vital Signs - Most Recent: Last Vital Signs Temp 36.7 C 05/01/17 21:00 Pulse 78 05/01/17 21:00 Resp 16 05/01/17 21:00 BP 130/76 05/01/17 21:00 Pulse Ox 96 05/01/17 21:00 I&O - Last 24 Hours: Intake & Output 05/01/17 05/02/17 05/02/17 22:59 06:59 14:59 Intake Total 1350 Output Total 1600 Balance -250 Lab Results - Last 24 Hours: Laboratory Results - last 24 hr 05/01/17 05/01/17 05/01/17 Range/Units 08:55 15:10 15:10 WBC 12.98 H (4.0-11.0) K/uL RBC 3.55 L (4.30-5.90) M/uL Hgb 10.2 L (12.0-16.0) g/dL Hct 30.6 L (36.0-46.0) % MCV 86.2 (80.0-98.0) fL MCH 28.7 (27.0-32.0) pg MCHC 33.3 (31.0-37.0) g/dL RDW Std Deviation 42.5 (28.0-62.0) fl RDW Coeff of Maegan 14 (11.0-15.0) % Plt Count 194 (150-400) K/uL MPV 10.50 (7.40-12.00) fL Neut % (Auto) 75.5 (48.0-80.0) % Lymph % (Auto) 17.3 (16.0-40.0) % Wright % (Auto) 6.1 (0.0-15.0) % Eos % (Auto) 0.8 (0.0-7.0) % Baso % (Auto) 0.3 (0.0-1.5) % Neut # (Auto) 9.8 H (1.4-5.7) K/uL Lymph # (Auto) 2.2 (0.6-2.4) K/uL Wright # (Auto) 0.8 (0.0-0.8) K/uL Eos # (Auto) 0.1 (0.0-0.7) K/uL Baso # (Auto) 0.0 (0.0-0.1) K/uL Nucleated RBC % 0.0 /100WBC Nucleated RBCs # 0 K/uL Sodium 134 L (136-146) mmol/L Potassium 4.5 (3.5-5.1) mmol/L Chloride 104 (98-110) mmol/L Carbon Dioxide 23 (21-31) mmol/L BUN 11 (6.0-23.0) mg/dL Creatinine 0.8 (0.6-1.5) mg/dL Est Cr Clr Drug Dosing 97.62 mL/min Estimated GFR (MDRD) > 60.0 ml/min Glucose 121 H (60-110) mg/dL Calcium 6.9 L (8.8-10.8) mg/dL Magnesium 4.4 H > 4.6 H (1.5-2.3) mEq/L Total Bilirubin 0.2 (0.1-1.5) mg/dL AST 26 (5-40) IU/L ALT 16 (8-54) IU/L Alkaline Phosphatase 130 (40-150) Total Protein 5.5 L (6.0-8.0) g/dL Albumin 2.7 L (3.5-5.0) g/dL Globulin 2.8 (2.0-3.5) g/dL Albumin/Globulin Ratio 1.0 L (1.3-2.8) Micro Results - Last 24 Hours: Microbiology 04/29/17 22:15 Urine Culture - Final Urine, Clean Catch MIXED KERON 10,000-100,000 CFU/ML Med Orders - Current: Current Medications Acetaminophen (Tylenol Extra Strength) 1,000 mg PO Q6H PRN PRN Reason: Headache/Pain Last Admin: 04/30/17 22:12 Dose: 1,000 mg Acetaminophen (Tylenol Extra Strength) 500 mg PO Q4H PRN PRN Reason: Pain Acetaminophen (Tylenol Extra Strength) 1,000 mg PO Q4H PRN PRN Reason: Pain Benzocaine/Menthol (Dermoplast Pain Relief 20%-0.5% [place]) 78 gm TOP ASDIRECTED PRN PRN Reason: Perineal Comfort Measure Last Admin: 05/01/17 05:41 Dose: 1 canister Bisacodyl (Dulcolax) 10 mg RECTAL .ONCE PRN PRN Reason: Constipation Calcium Gluconate (Calcium Gluconate) 1 gm IV ASDIRECTED PRN PRN Reason: respiratory distress Carboprost Tromethamine (Hemabate Ds) 250 mcg IM ASDIRECTED PRN PRN Reason: Post Hemorrhage Cephalexin (Keflex) 500 mg PO Q6HR [facility] Last Admin: 05/02/17 05:56 Dose: 500 mg Docusate Sodium (Colace) 100 mg PO BID PRN PRN Reason: Constipation Emollient Ointment (Lansinoh Hpa) 0 gm TOP ASDIRECTED PRN PRN Reason: Sore Nipples Last Admin: 05/01/17 05:42 Dose: 1 applicful Lactated Ringer's (Ringers, Lactated) 1,000 mls @ 50 mls/hr IV ASDIRECTED [facility] Last Admin: 05/01/17 06:35 Dose: 999 mls/hr Oxytocin/Sodium Chloride (Oxytocin 30 Unit/500 Ml-Ns) 30 unit in 500 mls @ 999 mls/hr IV TITRATE [facility]1983 Oxytocin/Sodium Chloride (Oxytocin 30 Unit/500 Ml-Ns) 30 unit in 500 mls @ 2 mls/hr IV TITRATE KARTIK; 2 MUNITS/MIN PRN Reason: Protocol Last Titration: 05/01/17 04:17 Dose: 999 munits/min, 999 mls/hr Magnesium Sulfate (Magnesium Sulfate 40 Gm In Water 1000 Ml) 40 gm in 1,000 mls @ 50 mls/hr IV ASDIRECTED KARTIK; 2 GM/HR PRN Reason: Protocol Last Admin: 05/01/17 05:49 Dose: 2 gm/hr, 50 mls/hr Ibuprofen (Motrin) 400 mg PO Q4H PRN PRN Reason: Pain Ibuprofen (Motrin) 800 mg PO Q6H PRN PRN Reason: Pain Last Admin: 05/02/17 02:45 Dose: 800 mg Methylergonovine Maleate (Methergine) 0.2 mg IM ASDIRECTED PRN PRN Reason: Post Hemorrhage Nalbuphine HCl (Nubain) 10 mg IVPUSH Q1H PRN PRN Reason: Pain (severe 7-10) Ondansetron HCl (Zofran) 4 mg IVPUSH Q6H PRN PRN Reason: Nausea/Vomiting Oxycodone HCl (Oxycodone) 5 mg PO Q2H PRN PRN Reason: Pain Sodium Chloride (Saline Flush) 2.5 ml FLUSH ASDIRECTED PRN PRN Reason: Keep Vein Open Sodium Chloride (Saline Flush) 10 ml FLUSH ASDIRECTED PRN PRN Reason: Keep Vein Open Witch Valeria (Tucks) 1 pad TOP ASDIRECTED PRN PRN Reason: comfort care Last Admin: 05/01/17 05:42 Dose: 1 applic Discontinued Medications Butorphanol Tartrate (Stadol) 1 mg IVPUSH Q1H PRN PRN Reason: Pain Fentanyl (Sublimaze) Confirm Administered Dose 200 mcg .ROUTE .STK-MED ONE Stop: 05/01/17 00:37 Last Admin: 05/01/17 23:51 Dose: Not Given Magnesium Sulfate 4 gm/ Premix 100 mls @ 300 mls/hr IV .BOLUS ONE Stop: 04/30/17 07:43 Last Admin: 04/30/17 09:42 Dose: 300 mls/hr Ropivacaine (Naropin 0.2%) Confirm Administered Dose 100 mls @ as directed .ROUTE .STK-MED ONE Stop: 05/01/17 00:36 Last Admin: 05/01/17 23:51 Dose: Not Given Influenza Virus Vaccine (Pharmacy To Dose - Influenza Vaccine) 1 each IM ONETIME ONE Stop: 04/30/17 04:14 Influenza Virus Vaccine (Flulaval Quad [id number]) 60 mcg IM .ONCE ONE Stop: 04/30/17 04:31 Lidocaine HCl (Xylocaine 1%) 50 ml INJECT .ONCE PRN PRN Reason: Laceration repair Misoprostol (Cytotec) 200 mcg PO .ONCE PRN PRN Reason: Post Hemorrhage Misoprostol (Cytotec) 25 mcg VAG .ONCE KARTIK Last Admin: 04/30/17 10:26 Dose: 25 mcg Misoprostol (Cytotec) 25 mcg VAG Q6H PRN PRN Reason: Cervical Ripening Last Admin: 04/30/17 16:25 Dose: 25 mcg Ondansetron HCl (Zofran) 4 mg IVPUSH ONETIME STA Stop: 05/01/17 04:47 Last Admin: 05/01/17 05:00 Dose: 4 mg Sodium Chloride (Saline Flush) 10 ml FLUSH ASDIRECTED PRN PRN Reason: Keep Vein Open Sodium Chloride (Saline Flush) 2.5 ml FLUSH ASDIRECTED PRN PRN Reason: Keep Vein Open Sterile Water (Sterile Water For Irrigation) 1,000 ml IRR ASDIRECTED PRN PRN Reason: delivery Terbutaline Sulfate (Brethine) 0.25 mg SUBCUT ASDIRECTED PRN PRN Reason: Tacysystole - Problem List & Annotations (1) Pre-eclampsia, delivered SNOMED Code(s): 416264402 Code(s): O14.94 - UNSPECIFIED PRE-ECLAMPSIA, COMPLICATING CHILDBIRTH Status : Acute Current Visit: Yes - Problem List Review Problem List Initiated/Reviewed/Updated: Yes - Plan Plan:: Patient seen and examined--do not agree with above. Patient has just finished magnesium prophylaxis. Will monitor today and if remains stable, plan discharge tomorrow. Will be seeing Dr Stallworth/Bertin Cobos in follow up as she is their continuity patient. Continue cares. BPs are mildly elevated, diuresing well though. Labs have remained stable.
[2017-05-03] MEDS: Cephalexin 500 MG Cap PO SCH ×2 (00:35→06:38)
[2017-05-03] MEDS: Ibuprofen 800 MG Tab PO PRN (05:25)
--- NOTE | 2017-05-03 07:13 | PCM.PNPP ---
<Osvaldo Drake - Last Filed: 05/03/17 07:50> - General Info Date of Service: 05/03/17 Functional Status: Reports: Pain Controlled, Tolerating Diet, Ambulating, Urinating - Review of Systems General: Denies: Fever, Weakness, Fatigue HEENT: Denies: Headaches, Visual Changes Pulmonary: Denies: Shortness of Breath, Pleuritic Chest Pain, Cough Cardiovascular: Denies: Chest Pain, Palpitations Gastrointestinal: Denies: Diarrhea, Nausea, Vomiting Genitourinary: Denies: Dysuria, Frequency Skin: Denies: Cyanosis, Jaundice Neurological: Denies: Confusion, Dizziness, Headache Psychiatric: Denies: Confusion, Depression, Mood Lability - General Info Date of Service: 05/03/17 - Patient Data Vital Signs - Most Recent: Last Vital Signs Temp 97.8 F 05/03/17 05:04 Pulse 72 05/03/17 05:04 Resp 18 05/03/17 05:04 BP 128/78 05/03/17 05:04 Pulse Ox 96 05/03/17 05:04 Weight - Most Recent: 80.3 kg I&O - Last 24 Hours: Intake & Output 05/02/17 05/03/17 05/03/17 22:59 06:59 14:59 Intake Total 600 2000 Output Total 2200 Balance 600 -200 Med Orders - Current: Current Medications Acetaminophen (Tylenol Extra Strength) 1,000 mg PO Q6H PRN PRN Reason: Headache/Pain Last Admin: 04/30/17 22:12 Dose: 1,000 mg Acetaminophen (Tylenol Extra Strength) 500 mg PO Q4H PRN PRN Reason: Pain Acetaminophen (Tylenol Extra Strength) 1,000 mg PO Q4H PRN PRN Reason: Pain Benzocaine/Menthol (Dermoplast Pain Relief 20%-0.5% [place]) 78 gm TOP ASDIRECTED PRN PRN Reason: Perineal Comfort Measure Last Admin: 05/01/17 05:41 Dose: 1 canister Bisacodyl (Dulcolax) 10 mg RECTAL .ONCE PRN PRN Reason: Constipation Calcium Gluconate (Calcium Gluconate) 1 gm IV ASDIRECTED PRN PRN Reason: respiratory distress Carboprost Tromethamine (Hemabate Ds) 250 mcg IM ASDIRECTED PRN PRN Reason: Post Hemorrhage Cephalexin (Keflex) 500 mg PO Q6HR KARTIK Last Admin: 05/03/17 06:38 Dose: 500 mg Docusate Sodium (Colace) 100 mg PO BID PRN PRN Reason: Constipation Emollient Ointment (Lansinoh Hpa) 0 gm TOP ASDIRECTED PRN PRN Reason: Sore Nipples Last Admin: 05/01/17 05:42 Dose: 1 applicful Lactated Ringer's (Ringers, Lactated) 1,000 mls @ 50 mls/hr IV ASDIRECTED KARTIK Last Admin: 05/01/17 06:35 Dose: 999 mls/hr Oxytocin/Sodium Chloride (Oxytocin 30 Unit/500 Ml-Ns) 30 unit in 500 mls @ 999 mls/hr IV TITRATE KARTIK Oxytocin/Sodium Chloride (Oxytocin 30 Unit/500 Ml-Ns) 30 unit in 500 mls @ 2 mls/hr IV TITRATE KARTIK; 2 MUNITS/MIN PRN Reason: Protocol Last Titration: 05/01/17 04:17 Dose: 999 munits/min, 999 mls/hr Magnesium Sulfate (Magnesium Sulfate 40 Gm In Water 1000 Ml) 40 gm in 1,000 mls @ 50 mls/hr IV ASDIRECTED KARTIK; 2 GM/HR PRN Reason: Protocol Last Admin: 05/01/17 05:49 Dose: 2 gm/hr, 50 mls/hr Ibuprofen (Motrin) 400 mg PO Q4H PRN PRN Reason: Pain Ibuprofen (Motrin) 800 mg PO Q6H PRN PRN Reason: Pain Last Admin: 05/03/17 05:25 Dose: 800 mg Influenza Virus Vaccine (Flulaval Quad [id number]) 60 mcg IM .ONCE ONE Stop: 05/03/17 10:01 Methylergonovine Maleate (Methergine) 0.2 mg IM ASDIRECTED PRN PRN Reason: Post Hemorrhage Nalbuphine HCl (Nubain) 10 mg IVPUSH Q1H PRN PRN Reason: Pain (severe 7-10) Ondansetron HCl (Zofran) 4 mg IVPUSH Q6H PRN PRN Reason: Nausea/Vomiting Oxycodone HCl (Oxycodone) 5 mg PO Q2H PRN PRN Reason: Pain Sodium Chloride (Saline Flush) 2.5 ml FLUSH ASDIRECTED PRN PRN Reason: Keep Vein Open Sodium Chloride (Saline Flush) 10 ml FLUSH ASDIRECTED PRN PRN Reason: Keep Vein Open Witch Valeria (Tucks) 1 pad TOP ASDIRECTED PRN PRN Reason: comfort care Last Admin: 05/01/17 05:42 Dose: 1 applic Discontinued Medications Butorphanol Tartrate (Stadol) 1 mg IVPUSH Q1H PRN PRN Reason: Pain Fentanyl (Sublimaze) Confirm Administered Dose 200 mcg .ROUTE .STK-MED ONE Stop: 05/01/17 00:37 Last Admin: 05/01/17 23:51 Dose: Not Given Magnesium Sulfate 4 gm/ Premix 100 mls @ 300 mls/hr IV .BOLUS ONE Stop: 04/30/17 07:43 Last Admin: 04/30/17 09:42 Dose: 300 mls/hr Ropivacaine (Naropin 0.2%) Confirm Administered Dose 100 mls @ as directed .ROUTE .STK-MED ONE Stop: 05/01/17 00:36 Last Admin: 05/01/17 23:51 Dose: Not Given Influenza Virus Vaccine (Pharmacy To Dose - Influenza Vaccine) 1 each IM ONETIME ONE Stop: 04/30/17 04:14 Lidocaine HCl (Xylocaine 1%) 50 ml INJECT .ONCE PRN PRN Reason: Laceration repair Misoprostol (Cytotec) 200 mcg PO .ONCE PRN PRN Reason: Post Hemorrhage Misoprostol (Cytotec) 25 mcg VAG .ONCE KARTIK Last Admin: 04/30/17 10:26 Dose: 25 mcg Misoprostol (Cytotec) 25 mcg VAG Q6H PRN PRN Reason: Cervical Ripening Last Admin: 04/30/17 16:25 Dose: 25 mcg Ondansetron HCl (Zofran) 4 mg IVPUSH ONETIME STA Stop: 05/01/17 04:47 Last Admin: 05/01/17 05:00 Dose: 4 mg Sodium Chloride (Saline Flush) 10 ml FLUSH ASDIRECTED PRN PRN Reason: Keep Vein Open Sodium Chloride (Saline Flush) 2.5 ml FLUSH ASDIRECTED PRN PRN Reason: Keep Vein Open Sterile Water (Sterile Water For Irrigation) 1,000 ml IRR ASDIRECTED PRN PRN Reason: delivery Terbutaline Sulfate (Brethine) 0.25 mg SUBCUT ASDIRECTED PRN PRN Reason: Tacysystole - Interaction Infant Disposition, : in Room with Family Interaction: Holding Feeding: Breastfed ; Nursed Well Support Person: Significant Other - Recovery Exam Fundal Tone: Firm Fundal Level: 1 Fingerbreadths Below Umbilicus Fundal Placement: Midline Lochia Amount: Scant Lochia Color: Rubra/Red Perineum Description: Other (see below) Other Perinuem Description: with 2nd degree lac. repaired Episiotomy/Laceration: Approximated Bladder Status: Voiding Urinary Elimination: Voided - Exam General: Alert, Oriented HEENT: Mucous Membr. Moist/[place] Neck: Trachea Midline Lungs: Clear to Auscultation, Normal Respiratory Effort Cardiovascular: Regular Rate, Regular Rhythm GI/Abdominal Exam: Normal Bowel Sounds, Soft Extremities: Normal Inspection, Normal Range of Motion, Non-Tender, No Pedal Edema Skin: Warm, Dry, Intact Neurological: No New Focal Deficit Psy/Mental Status: Alert, Normal Affect, Normal Mood - Problem List & Annotations (1) Pre-eclampsia, delivered SNOMED Code(s): 989289813 Code(s): O14.94 - UNSPECIFIED PRE-ECLAMPSIA, COMPLICATING CHILDBIRTH Status : Acute Current Visit: Yes (2) Vaginal delivery SNOMED Code(s): 610280853 Code(s): O80 - ENCOUNTER FOR FULL-TERM UNCOMPLICATED DELIVERY Status: Acute Current Visit: Yes - Problem List Review Problem List Initiated/Reviewed/Updated: Yes - Assessment Assessment:: PPD #2 - at 37weeks with mild preecalmpsia. Minimal pain and lochia. For the last 24 hours the patient's blood pressure was slightly elevated with no signs/symptoms of preeclampsia. Patient was ambulating without issue and improving technique. She is diuresing well. - Plan Plan:: Patient and baby are stable and plan to discharge later today. Discharge instruction reviewed. Instructed patient to call if she has a fever greater than 101 or bleeding through a large pad in less than an hour. Also instructed her to call if she has any signs or symptoms of preeclampsia; headaches, vision changes or severe abdominal pain. Continue to take if she continues to plan to breastfeed. Nothing in the vaginal for the next 6 weeks and educated that she is still able to become even with and not having a period. Educated on common emotional changes to expect and to call if if symptoms seem to become overwhelming. Patient wished to supplement with [id number]'s breast milk as [id number] had a baby recently and is overproducing milk. I instructed her that I did not see any problem with this as long as she was sure of her [id number] diet. I also advised her to follow up with the Doctor main line station engineer to be sure. Patient does desire control and asked about taking "the pill" again. I instructed her that there was a "mini pill" that she should ask about at her 6 week PP visit with [facility]. Follow up with Dr. Stallworth/[facility] in 6 weeks. <Arlette Nunez - Last Filed: 05/03/17 07:59> - Patient Data Vital Signs - Most Recent: Last Vital Signs Temp 36.6 C 05/03/17 05:04 Pulse 72 05/03/17 05:04 Resp 18 05/03/17 05:04 BP 128/78 05/03/17 05:04 Pulse Ox 96 05/03/17 05:04 I&O - Last 24 Hours: Intake & Output 05/02/17 05/03/17 05/03/17 22:59 06:59 14:59 Intake Total 600 2000 Output Total 2200 Balance 600 -200 Med Orders - Current: Current Medications Acetaminophen (Tylenol Extra Strength) 1,000 mg PO Q6H PRN PRN Reason: Headache/Pain Last Admin: 04/30/17 22:12 Dose: 1,000 mg Acetaminophen (Tylenol Extra Strength) 500 mg PO Q4H PRN PRN Reason: Pain Acetaminophen (Tylenol Extra Strength) 1,000 mg PO Q4H PRN PRN Reason: Pain Benzocaine/Menthol (Dermoplast Pain Relief 20%-0.5% [place]) 78 gm TOP ASDIRECTED PRN PRN Reason: Perineal Comfort Measure Last Admin: 05/01/17 05:41 Dose: 1 canister Bisacodyl (Dulcolax) 10 mg RECTAL .ONCE PRN PRN Reason: Constipation Calcium Gluconate (Calcium Gluconate) 1 gm IV ASDIRECTED PRN PRN Reason: respiratory distress Carboprost Tromethamine (Hemabate Ds) 250 mcg IM ASDIRECTED PRN PRN Reason: Post Hemorrhage Cephalexin (Keflex) 500 mg PO Q6HR KARTIK Last Admin: 05/03/17 06:38 Dose: 500 mg Docusate Sodium (Colace) 100 mg PO BID PRN PRN Reason: Constipation Emollient Ointment (Lansinoh Hpa) 0 gm TOP ASDIRECTED PRN PRN Reason: Sore Nipples Last Admin: 05/01/17 05:42 Dose: 1 applicful Lactated Ringer's (Ringers, Lactated) 1,000 mls @ 50 mls/hr IV ASDIRECTED KARTIK Last Admin: 05/01/17 06:35 Dose: 999 mls/hr Oxytocin/Sodium Chloride (Oxytocin 30 Unit/500 Ml-Ns) 30 unit in 500 mls @ 999 mls/hr IV TITRATE KARTIK Oxytocin/Sodium Chloride (Oxytocin 30 Unit/500 Ml-Ns) 30 unit in 500 mls @ 2 mls/hr IV TITRATE KARTIK; 2 MUNITS/MIN PRN Reason: Protocol Last Titration: 05/01/17 04:17 Dose: 999 munits/min, 999 mls/hr Magnesium Sulfate (Magnesium Sulfate 40 Gm In Water 1000 Ml) 40 gm in 1,000 mls @ 50 mls/hr IV ASDIRECTED KARTIK; 2 GM/HR PRN Reason: Protocol Last Admin: 05/01/17 05:49 Dose: 2 gm/hr, 50 mls/hr Ibuprofen (Motrin) 400 mg PO Q4H PRN PRN Reason: Pain Ibuprofen (Motrin) 800 mg PO Q6H PRN PRN Reason: Pain Last Admin: 05/03/17 05:25 Dose: 800 mg Influenza Virus Vaccine (Fluarix Quad [id number]) 60 mcg IM .ONCE ONE Stop: 05/03/17 10:01 Methylergonovine Maleate (Methergine) 0.2 mg IM ASDIRECTED PRN PRN Reason: Post Hemorrhage Nalbuphine HCl (Nubain) 10 mg IVPUSH Q1H PRN PRN Reason: Pain (severe 7-10) Ondansetron HCl (Zofran) 4 mg IVPUSH Q6H PRN PRN Reason: Nausea/Vomiting Oxycodone HCl (Oxycodone) 5 mg PO Q2H PRN PRN Reason: Pain Sodium Chloride (Saline Flush) 2.5 ml FLUSH ASDIRECTED PRN PRN Reason: Keep Vein Open Sodium Chloride (Saline Flush) 10 ml FLUSH ASDIRECTED PRN PRN Reason: Keep Vein Open Witch Valeria (Tucks) 1 pad TOP ASDIRECTED PRN PRN Reason: comfort care Last Admin: 05/01/17 05:42 Dose: 1 applic Discontinued Medications Butorphanol Tartrate (Stadol) 1 mg IVPUSH Q1H PRN PRN Reason: Pain Fentanyl (Sublimaze) Confirm Administered Dose 200 mcg .ROUTE .STK-MED ONE Stop: 05/01/17 00:37 Last Admin: 05/01/17 23:51 Dose: Not Given Magnesium Sulfate 4 gm/ Premix 100 mls @ 300 mls/hr IV .BOLUS ONE Stop: 04/30/17 07:43 Last Admin: 04/30/17 09:42 Dose: 300 mls/hr Ropivacaine (Naropin 0.2%) Confirm Administered Dose 100 mls @ as directed .ROUTE .STK-MED ONE Stop: 05/01/17 00:36 Last Admin: 05/01/17 23:51 Dose: Not Given Influenza Virus Vaccine (Pharmacy To Dose - Influenza Vaccine) 1 each IM ONETIME ONE Stop: 04/30/17 04:14 Lidocaine HCl (Xylocaine 1%) 50 ml INJECT .ONCE PRN PRN Reason: Laceration repair Misoprostol (Cytotec) 200 mcg PO .ONCE PRN PRN Reason: Post Hemorrhage Misoprostol (Cytotec) 25 mcg VAG .ONCE KARTIK Last Admin: 04/30/17 10:26 Dose: 25 mcg Misoprostol (Cytotec) 25 mcg VAG Q6H PRN PRN Reason: Cervical Ripening Last Admin: 04/30/17 16:25 Dose: 25 mcg Ondansetron HCl (Zofran) 4 mg IVPUSH ONETIME STA Stop: 05/01/17 04:47 Last Admin: 05/01/17 05:00 Dose: 4 mg Sodium Chloride (Saline Flush) 10 ml FLUSH ASDIRECTED PRN PRN Reason: Keep Vein Open Sodium Chloride (Saline Flush) 2.5 ml FLUSH ASDIRECTED PRN PRN Reason: Keep Vein Open Sterile Water (Sterile Water For Irrigation) 1,000 ml IRR ASDIRECTED PRN PRN Reason: delivery Terbutaline Sulfate (Brethine) 0.25 mg SUBCUT ASDIRECTED PRN PRN Reason: Tacysystole - Problem List & Annotations (1) Pre-eclampsia, delivered SNOMED Code(s): 597732094 Code(s): O14.94 - UNSPECIFIED PRE-ECLAMPSIA, COMPLICATING CHILDBIRTH Status : Acute Current Visit: Yes - My Orders Last 24 Hours: My Active Orders 05/02/17 Dinner Regular Diet [DIET] - Plan Plan:: Patient is ready to go home. Agree with above discharge. Discharge to home today, call with any concerns. BP check in 2 weeks at OB clinic
[2017-05-03 09:06] VITALS: BP 137/75
[2017-05-03] MEDS ORDERED: FLU Vacc QS 2017-18 (6mos UP)/PF 60 MCG/0.5 ML Syringe IM ONE (10:00)
[2017-05-03] MEDS ORDERED: FLU Vacc QS 2017-18 (36mos UP)/PF 60 MCG/0.5 ML Syringe IM ONE (10:00)
== END 2017-05-03 10:20 | disposition home or self-care (01) | DRG 774 ==
LOC: MW.OBCHECK 22:07 → MW.OB 22:10 → MW.OBCHECK 04-30 10:22 → MW.OB 04-30 10:22 → OBSVTOIN 05-01 04:16
PROVIDERS: ADMIT Obstetrics & Gynecology; ATTEND Obstetrics & Gynecology
PROC: 10E0XZZ Delivery of Products of Conception, External Approach (ICD-10-PCS; principal; 2017-05-01)
PROC: 0KQM0ZZ Repair Perineum Muscle, Open Approach (ICD-10-PCS; 2017-05-01)
PROC: 00HU33Z Insertion of Infusion Device into Spinal Canal, Percutaneous Approach (ICD-10-PCS; 2017-05-01)
PROC: 3E0R3BZ Introduction of Anesthetic Agent into Spinal Canal, Percutaneous Approach (ICD-10-PCS; 2017-05-01)
PROC: 3E0P7VZ Introduction of Hormone into Female Reproductive, Via Natural or Artificial Opening (ICD-10-PCS; 2017-05-01)
DX: O14.04 Mild to moderate pre-eclampsia, complicating childbirth (principal); O75.3 Other infection during labor; Z37.0 Single live birth; Z3A.38 38 weeks gestation of pregnancy; O70.1 Second degree perineal laceration during delivery; O69.81X0 Labor and delivery complicated by cord around neck, without compression, not applicable or unspecified
CPT/HCPCS: 01967; 36415; 51702; 59025; 59409; 80053; 81001; 81050; 83735; 84156; 84550; 85025; 85027; 86850; 86900; 86901; 87086; 90686; A9270-GY; J2405; J2590; J2795; J3010; J3475; J7120